=== PATIENT | female | born 1970 | race Caucasian/White ===

== ENCOUNTER 2017-09-29 13:41 | Outpatient (CLI) | payer OTHER | END 2017-09-29 14:39 | disposition home or self-care (01) | LOC: MAMO-SONO 13:41 | DX: Z12.31 Encounter for screening mammogram for malignant neoplasm of breast (principal); E03.9 Hypothyroidism, unspecified; E04.1 Nontoxic single thyroid nodule ==

== ENCOUNTER → 2018-08-10 | Outpatient (CLI) | payer OTHER | END | disposition home or self-care (01) | LOC: NUCLEAR 13:00 | DX: M85.80 Other specified disorders of bone density and structure, unspecified site (principal) ==

== ENCOUNTER 2018-10-19 11:39 | Outpatient (CLI) | payer OTHER | END 2018-10-19 11:44 | disposition home or self-care (01) | LOC: MAMO-SONO 11:39 | DX: C50.911 Malignant neoplasm of unspecified site of right female breast (principal); C50.912 Malignant neoplasm of unspecified site of left female breast; Z48.3 Aftercare following surgery for neoplasm ==

== ENCOUNTER 2019-06-14 14:14 | Outpatient (CLI) | payer OTHER ==
[~2019-06-14 14:14] MED LIST: SKELAXIN800 MG PO
== END 2019-06-14 15:30 | disposition home or self-care (01) ==
LOC: RAD 14:14
DX: M54.2 Cervicalgia (principal); M54.5 Low back pain

== ENCOUNTER 2020-01-22 13:55 | Outpatient (CLI) | payer OTHER | END 2020-01-22 14:04 | disposition home or self-care (01) | LOC: MAMO-SONO 13:55 | PROVIDERS: ATTEND Internal Medicine Sports Medicine | DX: Z12.31 Encounter for screening mammogram for malignant neoplasm of breast (principal) ==

== ENCOUNTER 2020-04-15 08:29 | Outpatient (CLI) | payer OTHER | END 2020-04-15 08:43 | disposition home or self-care (01) | LOC: SONOGRAMA 08:29 | PROVIDERS: ATTEND Internal Medicine Gastroenterology | DX: R16.0 Hepatomegaly, not elsewhere classified (principal) ==

== ENCOUNTER 2020-09-22 14:04 | Outpatient (CLI) | payer OTHER | END 2020-09-22 14:13 | disposition home or self-care (01) | LOC: SONOGRAMA 14:04 | PROVIDERS: ATTEND Internal Medicine Gastroenterology | DX: E04.1 Nontoxic single thyroid nodule (principal) ==

== ENCOUNTER 2020-11-10 13:05 | Outpatient (CLI) | payer OTHER | END 2020-11-10 13:07 | disposition home or self-care (01) | LOC: NUCLEAR 13:05 | PROVIDERS: ATTEND Internal Medicine Sports Medicine | DX: M81.0 Age-related osteoporosis without current pathological fracture (principal); I73.00 Raynaud's syndrome without gangrene; E78.01 Familial hypercholesterolemia ==

== ENCOUNTER 2021-02-04 14:00 | Outpatient (CLI) | payer OTHER | END 2021-02-04 14:05 | disposition home or self-care (01) | LOC: MAMO-SONO 14:00 | PROVIDERS: ATTEND Specialist | DX: N60.11 Diffuse cystic mastopathy of right breast (principal); N60.12 Diffuse cystic mastopathy of left breast; Z12.31 Encounter for screening mammogram for malignant neoplasm of breast ==

== ENCOUNTER → 2022-02-20 | Emergency (ER) | payer OTHER ==
[~2022-02-20] VITALS: Ht 157.5 cm; Wt 49.9 kg
== END | disposition home or self-care (01) ==
LOC: ER 15:56
DX: R00.2 Palpitations (principal)

== ENCOUNTER 2022-09-15 14:08 | Outpatient (CLI) | payer OTHER | END 2022-09-15 14:13 | disposition home or self-care (01) | LOC: SONOGRAMA 14:08 | PROVIDERS: ATTEND Internal Medicine Sports Medicine | DX: E04.1 Nontoxic single thyroid nodule (principal); E04.9 Nontoxic goiter, unspecified; E03.8 Other specified hypothyroidism ==

== ENCOUNTER 2022-11-03 12:41 | Outpatient (CLI) | payer OTHER | END 2022-11-03 12:55 | disposition home or self-care (01) | LOC: RAD 12:41 | PROVIDERS: ATTEND Internal Medicine Sports Medicine | DX: R06.02 Shortness of breath (principal) ==

== ENCOUNTER 2022-11-11 13:20 | Outpatient (CLI) | payer OTHER | END 2022-11-11 13:22 | disposition home or self-care (01) | LOC: NUCLEAR 13:20 | PROVIDERS: ATTEND Internal Medicine Sports Medicine | DX: M81.0 Age-related osteoporosis without current pathological fracture (principal) ==

== ENCOUNTER 2024-10-09 14:03 | Outpatient (CLI) | payer OTHER | END 2024-10-09 14:11 | disposition home or self-care (01) | LOC: SONOGRAMA 14:03 | PROVIDERS: ATTEND Internal Medicine Sports Medicine | DX: E89.0 Postprocedural hypothyroidism (principal) ==

== ENCOUNTER 2024-12-03 13:17 | Outpatient (CLI) | payer OTHER | END 2024-12-03 13:18 | disposition home or self-care (01) | LOC: NUCLEAR 13:17 | PROVIDERS: ATTEND Internal Medicine Sports Medicine | DX: M85.859 Other specified disorders of bone density and structure, unspecified thigh (principal); M81.0 Age-related osteoporosis without current pathological fracture ==